=== PATIENT | male | born 1985 | race African-American/Black ===

== ENCOUNTER 2016-12-08 13:37 | Emergency (ER) | payer OTHER ==
[~2016-12-08] VITALS: Ht 190.5 cm; Wt 224.5 kg
[2016-12-08 14:44] VITALS: BP 177/96
== END 2016-12-08 15:48 | disposition home or self-care (01) ==
LOC: ER 13:38
DX: M54.42 Lumbago with sciatica, left side (principal); E66.01 Morbid (severe) obesity due to excess calories; Z68.44 Body mass index [BMI] 60.0-69.9, adult; G89.29 Other chronic pain; Z88.6 Allergy status to analgesic agent

== ENCOUNTER 2017-05-01 18:07 | Emergency (ER) | payer MEDICAID, OTHER ==
[~2017-05-01] VITALS: Ht 162.6 cm; Wt 84.4 kg
[2017-05-02 01:37] VITALS: BP 152/77
[2017-05-02] MEDS: CYCLOBENZAPRINE HCL 10 MG TAB PO ONE (01:37)
[2017-05-02] MEDS: HYDROcodone-ACET 10/325MG TAB PO ONE (01:37)
== END 2017-05-02 02:01 | disposition home or self-care (01) ==
LOC: ER 18:24
DX: M54.31 Sciatica, right side (principal); Z88.6 Allergy status to analgesic agent

== ENCOUNTER 2017-10-06 16:14 | Emergency (ER) | payer MEDICAID ==
[~2017-10-06] VITALS: Ht 190.5 cm; Wt 226.8 kg
[2017-10-06 18:44] VITALS: BP 164/110
[2017-10-06] MEDS: KETOROLAC TROMETH 60MG/2ML VIAL IM ONE (18:53)
[2017-10-06] MEDS: methylPREDNISolone SOD SUCC 125 MG/2 ML VL IM ONE (18:53)
== END 2017-10-06 19:48 | disposition home or self-care (01) ==
LOC: ER 16:16
DX: M54.16 Radiculopathy, lumbar region (principal); M54.41 Lumbago with sciatica, right side; G89.29 Other chronic pain; M79.1 Myalgia; Z88.6 Allergy status to analgesic agent; Z88.8 Allergy status to other drugs, medicaments and biological substances
CPT/HCPCS: 96372; 99284; J1885; J2930